=== PATIENT | female | born 1995 | race Caucasian/White ===

== ENCOUNTER 2019-08-12 09:39 | Inpatient (IN) ==
[~2019-08-12 09:39] MED LIST: *HR* FentaNYL (PF) 100 MCG/2 ML VIAL IVP PRN; Famotidine 20 MG/2 ML VIAL IVP PRN; Lidocaine 1% 20 ML MDV INFILT PRN; Metoclopramide 10 MG/2 ML VIAL IVP PRN; Ondansetron 4 MG/2 ML VIAL IVP PRN
[2019-08-12 10:40] LABS: Basophils % 0.2 %; Eosinophils % 0.1 %; Hemoglobin 14.5 g/dL (11.5-15.4); Immature Granulocytes % 0.4 % (0-4); Lymphocytes # 1.9 K/mcL (0.6-4.6); Lymphocytes % 13.6 %; Mean Corpuscular HGB Conc 35.4 g/dL (31.6-35.5); Mean Corpuscular Hemoglobin 32.7 pg (28.0-33.3); Mean Corpuscular Volume 92.3 fL (83.0-100.0); Mean Platelet Volume 11.2 fL (9.4-12.4); Monocytes # 0.7 K/mcL (0.0-1.3); Monocytes % 5.2 %; Neutrophils # 11.4 K/mcL (1.6-8.9); Platelet Count 210 K/mcL (140-400); Red Blood Count 4.44 M/mcL (3.82-4.97); Red Cell Distribution Width 11.9 % (11.5-14.5); Segmented Neutrophils % 80.5 %; White Blood Count 14.2 K/mcL (4.3-11.1)
[2019-08-12] MEDS ORDERED: *HR* FentaNYL (PF) 100 MCG/2 ML VIAL EP ONE (10:41)
[2019-08-12] MEDS ORDERED: EPHEDrine 50 MG/ML VIAL IVP PRN (10:41)
[2019-08-12] MEDS ORDERED: Ondansetron 4 MG/2 ML VIAL IVP PRN (10:41)
[2019-08-12] MEDS ORDERED: Ropivacaine/PF 0.2% 20 ML VIAL EP ONE (10:41)
[2019-08-12] MEDS ORDERED: Naloxone 0.4 MG/ML INJ IVP PRN (10:41)
[2019-08-12] MEDS ORDERED: Epidural Premix (fent/bupiv) 110 ML EP SCH (10:45)
[2019-08-12] MEDS ORDERED: Oxytocin 20 units/ LR 1000 mL 20 UNIT/1,000 ML BAG IVC SCH ×2 (11:00→18:05)
[2019-08-12] MEDS: Ringers Solution, Lactated 1,000 ML IVC SCH ×2 (11:08→12:57)
[2019-08-12] MEDS ORDERED: *HR* FentaNYL (PF) 100 MCG/2 ML VIAL ONE (12:18)
[2019-08-12] MEDS ORDERED: *HR* Ropivacaine/PF 0.5% 20 ML VIAL ONE (13:07)
[2019-08-12] MEDS ORDERED: Measles/Mumps/Rubella Vacc 0.5 ML VIAL SQ PRN (18:05)
[2019-08-12] MEDS ORDERED: Acetaminophen 325 MG TABLET PO PRN (18:05)
[2019-08-12] MEDS ORDERED: Ibuprofen 600 MG TABLET PO PRN (18:05)
[2019-08-13 05:03] LABS: Basophils % 0.3 %; Eosinophils # 0.1 K/mcL (0.0-0.6); Eosinophils % 0.5 %; Hematocrit 35.2 % (35.3-44.9); Immature Granulocytes % 0.5 % (0-4); Lymphocytes # 2.1 K/mcL (0.6-4.6); Mean Corpuscular HGB Conc 34.1 g/dL (31.6-35.5); Mean Corpuscular Hemoglobin 31.4 pg (28.0-33.3); Mean Corpuscular Volume 92.1 fL (83.0-100.0); Mean Platelet Volume 11.4 fL (9.4-12.4); Monocytes % 6.9 %; Neutrophils # 10.7 K/mcL (1.6-8.9); Platelet Count 182 K/mcL (140-400); Red Blood Count 3.82 M/mcL (3.82-4.97); Red Cell Distribution Width 12.1 % (11.5-14.5); Segmented Neutrophils % 76.8 %
[2019-08-13] MEDS ORDERED: Prenatal Vit/FA 1 EACH TABLET PO SCH (09:00)
[2019-08-13 09:14] VITALS: BP 126/84
[2019-08-13] MEDS ORDERED: Benzocaine/Menthol 56 GM AEROSOL SPRAY TP PRN (13:06)
[2019-08-13] MEDS ORDERED: Benzocaine/Menthol 56 GM AEROSOL SPRAY TP ONE (13:12)
== END 2019-08-13 13:00 | disposition home or self-care (01) | DRG 807 ==
LOC: 1NENULAB → OBSVTOIN 09:39 → 1NENUOBS 17:16
PROVIDERS: ADMIT Obstetrics & Gynecology; ATTEND Obstetrics & Gynecology